=== PATIENT | female | born 1965 | race Caucasian/White ===

== ENCOUNTER 2025-01-20 18:04 | Emergency (ER) | payer BC, OTHER ==
[2025-01-20] MEDS ORDERED: Ibuprofen 200 MG TAB ONE (18:27)
== END 2025-01-20 19:10 | disposition home or self-care (01) ==
LOC: BURERS 18:04
DX: M54.6 Pain in thoracic spine (principal); M62.838 Other muscle spasm; V89.2XXA Person injured in unspecified motor-vehicle accident, traffic, initial encounter
CPT/HCPCS: 99284